=== PATIENT | male | born 1965 | race Caucasian/White ===

== ENCOUNTER 2020-06-19 13:36 | Emergency (ER) | payer OTHER, SELFPAY ==
[2020-06-19 13:39] VITALS: BP 169/89; PULSE 86; RESP 18; TEMP 36.4; O2SAT 100
[2020-06-19 14:37] LABS: Basophils Absolute Auto 0.1 K/mm3 (0.0-0.1); Basophils Percent Auto 0.7 % (0.2-1.2); Eosinophils Absolute Auto 0.1 K/mm3 (0-0.3); Eosinophils Percent Auto 1.3 % (0-4.4); Hematocrit 49.4 % (42.0-52.0); Hemoglobin 16.7 g/dL (14.0-18.0); Immature Granulocyte Absolute 0.09 K/mm3 (0.00-0.031); Lymphocytes Absolute Auto 2.52 K/mm3 (0.9-3.2); Lymphocytes Percent Auto 27.9 % (18.3-44.2); Mean Corpuscular HGB Conc 33.8 g/dl (32-36); Mean Corpuscular Hemoglobin 27.5 pg (26-34); Mean Corpuscular Volume 81.3 fl (80-100); Mean Platelet Volume 9.6 fl (7.4-10.4); Monocytes Absolute Auto 0.7 K/mm3 (0.1-0.6); Monocytes Percent Auto 7.3 % (2.6-8.5); Neutrophils Absolute Auto 5.6 K/mm3 (1.3-6.7); Neutrophils Percent Auto 61.8 % (45.5-73.1); Platelet Count Result 250 k/mm3 (150-375); Red Blood Count 6.08 M/mm3 (4.6-6.20); Red Cell Distribution Width 13.3 % (11.5-14.5)
[2020-06-19 14:39] LABS: Add Urine Microscopic? NO; Appearance Urine Clear (Clear); Bilirubin Urine Negative (Negative); Blood Urine Negative (Negative); Color Urine Colorless (Yellow); Glucose Urine UA Negative (Negative); Ketones Urine Negative (Negative); Leukocyte Esterase Ur Negative LEU/UL (Negative); Nitrate Urine Negative (Negative); Protein Urine Negative (Negative); Specific Grav Ur 1.008 (1.001-1.035); Urobilinogen Urine Negative mg/dL (<2.0)
[2020-06-19 14:48] LABS: Alanine Aminotransferase 37 U/L (4-50); Albumin Level 4.9 g/dL (3.5-5.1); Alkaline Phosphatase 71 U/L (38-126); Anion Gap 14.2 mmol/L (7-16); Aspartate Amino Transferase 30 U/L (17-59); Bilirubin,Total 0.8 mg/dL (0.2-1.3); Blood Urea Nitrogen 16 mg/dL (9-20); Calcium 10.4 mg/dL (8.4-10.2); Carbon Dioxide 29 mmol/L (22-30); Chloride 98 mmol/L (98-107); Estimated Glomerular Filt Rate > 60; Glucose 97 mg/dL (75-110); Lipase 137 U/L (23-300); Potassium 4.2 mmol/L (3.4-5.0); Sodium 137 mmol/L (137-145)
[2020-06-19] MEDS: BELLADONNA ALK/PHENOB ELIX 10 ML, MAG HYDROX/ALUMINUM HYD/SIMETH 30 ML, LIDOCAINE HCL 2... PO (14:54)
--- NOTE | 2020-06-19 15:32 | ED.GENADULT ---
HPI - General Adult General Chief complaint: Abdominal Pain Stated complaint: ABD PAIN Time Seen by Provider: 06/19/20 14:00 History of Present Illness HPI narrative: Patient is a 54-year-old male who presents the ER with abdominal pain. Located in the upper abdomen and is fullness. No diarrhea/constipation/nausea/vomiting. Reports he ran out of his omeprazole several days ago but is having no reflux-like symptoms. He did take some Tums earlier without any change. No chest pain or chest pressure. Symptoms worse last night after eating bratwurst and jalapeno mac & cheese. Related Data Home Medications Medication Instructions Recorded Confirmed omeprazole 40 mg capsule,delayed 40 mg PO .COMPLEX 03/03/20 release Allergies Allergy/AdvReac Type Severity Reaction Status Date / Time Penicillins Allergy Unknown Rash Verified 06/19/20 14:53 Review of Systems Review of Systems: All systems reviewed & are unremarkable except as noted in HPI and below Cardiovascular: Cardiovascular: Denies chest pain Respiratory: Respiratory: Denies dyspnea and Denies wheezing Gastrointestinal: Gastrointestinal: Reports abdominal pain, Denies diarrhea, Denies nausea and Denies vomiting PMFSH Social History Social History Smoking status: Never smoker Alcohol intake: current Gender identity (if verbalized by the patient): Male Exam Narrative: Exam Narrative: GENERAL: Well-appearing, well-nourished, and in no acute distress. HEAD: Normocephalic, atraumatic. CHEST: Clear to auscultation. No respiratory distress. HEART: Regular rate and rhythm. Normal peripheral pulses. ABDOMEN: Soft, nontender, nondistended. EXTREMITIES: Normal range of motion. No edema. NEURO: Alert and oriented x3. PSYCH: Normal mood and affect. Course Course Emergency Course: Informed results. Follow-up with PCP. Restart PPI. Patient does not need prescription according to him. Vital Signs Vital signs: Vital Signs Temperature 97.5 F L 06/19/20 13:39 Pulse Rate 86 06/19/20 13:39 Respiratory Rate 18 06/19/20 13:39 Blood Pressure 169/89 H 06/19/20 13:39 Pulse Oximetry 100 06/19/20 13:39 Temperature 97.5 F L 06/19/20 13:39 Pulse Rate 86 06/19/20 13:39 Respiratory Rate 18 06/19/20 13:39 Blood Pressure 169/89 H 06/19/20 13:39 Pulse Oximetry 100 06/19/20 13:39 Medical Decision Making Vital Signs Vital Signs: Vital Signs Temperature 97.5 F L 06/19/20 13:39 Pulse Rate 86 06/19/20 13:39 Respiratory Rate 18 06/19/20 13:39 Blood Pressure 169/89 H 06/19/20 13:39 Pulse Oximetry 100 06/19/20 13:39 Temperature 97.5 F L 06/19/20 13:39 Pulse Rate 86 06/19/20 13:39 Respiratory Rate 18 06/19/20 13:39 Blood Pressure 169/89 H 06/19/20 13:39 Pulse Oximetry 100 06/19/20 13:39 Lab Data Result diagrams: 06/19/20 14:21 06/19/20 14:21 Labs: Lab Results 06/19/20 06/19/20 06/19/20 Range/Units 14:21 14:21 14:21 WBC 9.0 (4.5-10.0) K/mm3 RBC 6.08 (4.6-6.20) M/mm3 Hgb 16.7 (14.0-18.0) g/dL Hct 49.4 (42.0-52.0) % MCV 81.3 (80-100) fl MCH 27.5 (26-34) pg MCHC 33.8 (32-36) g/dl RDW 13.3 (11.5-14.5) % Plt Count 250 (150-375) k/mm3 MPV 9.6 (7.4-10.4) fl Immature Gran % (Auto) 1.0 H (0-0.5) % Neut % (Auto) 61.8 (45.5-73.1) % Lymph % (Auto) 27.9 (18.3-44.2) % Faulk % (Auto) 7.3 (2.6-8.5) % Eos % (Auto) 1.3 (0-4.4) % Baso % (Auto) 0.7 (0.2-1.2) % Lymph # (Auto) 2.52 (0.9-3.2) K/mm3 Faulk # (Auto) 0.7 H (0.1-0.6) K/mm3 Eos # (Auto) 0.1 (0-0.3) K/mm3 Baso # (Auto) 0.1 (0.0-0.1) K/mm3 Abs Immat Gran (auto) 0.09 H (0.00-0.031) K/mm3 Absolute Neuts (auto) 5.6 (1.3-6.7) K/mm3 Absolute Nucleated RBC 0.0 (0.0-0.012) K/mm3 Nucleated RBC % 0.0 (0.0-0.2) % Sodium 137 (137-145) mmol/L Potassium 4.2
== END 2020-06-19 17:49 | disposition home or self-care (01) ==
PROVIDERS: Emergency Provider Emergency Medicine; PCP Emergency Medicine
DX: K21.9 Gastro-esophageal reflux disease without esophagitis (principal)
CPT/HCPCS: 36415; 80053; 81003; 83690; 85025; 99283; A9270

== ENCOUNTER 2021-12-04 15:45 | Outpatient (CLI) | payer OTHER, SELFPAY ==
--- NOTE | ~2021-12-04 | CT_ITS ---
EXAMINATION: CT abdomen pelvis w con INDICATION: Unspecified abdominal pain TECHNIQUE: Computed tomographic images of the abdomen and pelvis were obtained after the administrati on of 100 cc of Omnipaque 350 intravenous contrast. The dose-length product (DLP) was 789.35 mGy-cm. Automated exposure control and iterative reconstruction technique were employed. COMPARISON: 08/05/2005 FINDINGS: The lung bases are clear. The heart size is normal. The liver, spleen, pancreas, gallbladde r, and adrenal glands are normal. The right kidney is unremarkable. There is a 10 mm cyst of the left kidney. There is calcified atherosclerosis of the aorta and many of the other arteries. There is no free intraperitoneal gas or evidence of bowel obstruction. The appendix is normal. There are bilatera lly hernias containing fat, left greater than right. There are bilateral L5 pars defects with grade 1 anterolisthesis of L5 on S1 and moderate lumbar spondylosis. IMPRESSION: 1. No CT correlate for the patient's symptoms. 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
== END 2021-12-04 15:46 | disposition home or self-care (01) ==
LOC: ANHIMG 15:49
PROVIDERS: PCP Emergency Medicine; Visit Provider Emergency Medicine
DX: R10.9 Unspecified abdominal pain (principal)
CPT/HCPCS: 74177; Q9967

== ENCOUNTER 2022-04-19 00:42 | Day surgery (SDC) | payer OTHER, SELFPAY ==
[2022-03-31 14:21] VITALS: BMI 33.9
[2022-04-19 06:53] VITALS: BP 158/100; PULSE 88; RESP 18; TEMP 36.5; O2SAT 99
[2022-04-19] MEDS: LACTATED RINGERS 1,000 ML 150 ML IV CONT (07:03)
[2022-04-19 07:13] VITALS: BMI 32.1
--- NOTE | 2022-04-19 07:20 | WPDANESEPPF ---
Anes - Initial Pre Proc Eval Procedure: Operation Date: 04/19/22 08:00 Proposed Procedures p Screening Colonoscopy - Catracho Morton MD Date/Time: 04/19/22 07:20 Surgeon: Catracho Morton MD Pre Op Diagnosis: hx of colon polyps, neoplasm screening Patient Data Age: 56 Gender: M Height: 1.68 m Weight: 90.4 kg Last Vital Signs Temp 36.5 C 04/19/22 06:53 Pulse 88 04/19/22 06:53 Resp 18 04/19/22 06:53 BP 158/100 H 04/19/22 06:53 Pulse Ox 99 04/19/22 06:53 O2 Del Method Room Air 04/19/22 06:53 Allergies Allergy/AdvReac Type Severity Reaction Status Date / Time Penicillins Allergy Mild Rash Verified 04/19/22 07:12 Home Medications Medication Instructions Recorded Confirmed Type omeprazole 40 mg capsule,delayed 40 mg PO DAILY 03/03/20 03/31/22 History release tamsulosin 0.4 mg capsule (Flomax) 0.4 mg PO DAILY #90 caps 01/15/22 03/31/22 Rx metoprolol succinate 50 mg 50 mg PO BID #180 tabs 02/10/22 03/31/22 Rx tablet,extended release 24 hr (Toprol XL) lamotrigine 100 mg tablet 100 mg PO DAILY 03/31/22 03/31/22 History lisinopril 10 mg tablet 10 mg PO DAILY 03/31/22 03/31/22 History simvastatin 40 mg tablet 40 mg PO DAILY 03/31/22 03/31/22 History cholecalciferol (vitamin D3) 1,250 1,250 mcg PO WEEKLY #12 caps 04/02/22 04/19/22 Rx mcg (50,000 unit) capsule Patient hx anesthesia problems: none Family hx anesthesia problems: none Results Review: All pre-operative results and documents have been reviewed as part of the pre-operative evaluation. [facility] Past Medical History Medical History Actinic keratoses Acute nonintractable headache Allergic contact dermatitis due to plants, except food Apneic episode Bilateral carotid bruits Body mass index [BMI] 33.0-33.9, adult (02/13/18) Diastasis recti Dietary counseling and surveillance (03/28/17) Dizziness Elevated prostate specific antigen (PSA) Fatigue GERD (gastroesophageal reflux disease) HTN (hypertension) Hypogonadism in male Low serum testosterone level LTB (laryngotracheobronchitis) Mixed hyperlipidemia Overweight (10/16/15) Pure hypercholesterolemia Snoring Stress URI (upper respiratory infection) Family History Family History Father Family history of alcoholism Family history of liver disease Family history of primary malignant neoplasm of liver Family history of pancreatic cancer, Onset Age: 56 Mother Family history of Alzheimer's disease Social History Social History Smoking status: Never smoker Alcohol intake: current Alcohol use details: socially - beer, wine, bourbon 1-2 per day Substance use: never Substance use type: does not use Living arrangements: with family Gender identity (if verbalized by the patient): Male Spiritual care concerns: No Anes - Eval Final PreProcedure Day of Procedure 04/19/22 07:20 Patient weight: obese Heart: regular rate and rhythm Lungs: clear to auscultation and normal air movement Airway: Mallampati scale class II Neurological: alert and oriented Last oral intake: >/= 8 hours ASA classification: III Emergent: no Anesthetic plan: proceed Anesthesia type and monitoring: general GIVS Results Review: All pre-operative results and documents have been reviewed as part of the pre-operative evaluation. Informed Consent: The patient's anesthetic plan and its attendant risks and benefits were discussed with the patient/family/POA. Questions were solicited and answers provided to the satisfaction of the patient/family/POA.
--- NOTE | 2022-04-19 07:23 | PM.IMHP ---
H&P: HPI History of Present Illness Date/Time: 04/19/22 07:23 Chief Complaint: Neoplasia screening. Personal history of colon polyps. Narrative: This is a 56-year-old white male patient who presents for screening colonoscopy. Patient has a prior history of colon polyps. Most recently 5 years ago. Patient reports that his current weight appetite and bowel movements are normal. He denies abdominal pain. He has had no bleeding. Family history is noncontributory. He presents today for neoplasia screening. Review of Systems Review of Systems: Review of systems noncontributory. [facility] Past Medical History Medical History Actinic keratoses Acute nonintractable headache Allergic contact dermatitis due to plants, except food Apneic episode Bilateral carotid bruits Body mass index [BMI] 33.0-33.9, adult (02/13/18) Diastasis recti Dietary counseling and surveillance (03/28/17) Dizziness Elevated prostate specific antigen (PSA) Fatigue GERD (gastroesophageal reflux disease) HTN (hypertension) Hypogonadism in male Low serum testosterone level LTB (laryngotracheobronchitis) Mixed hyperlipidemia Overweight (10/16/15) Pure hypercholesterolemia Snoring Stress URI (upper respiratory infection) Family History Family History Father Family history of alcoholism Family history of liver disease Family history of primary malignant neoplasm of liver Family history of pancreatic cancer, Onset Age: 56 Mother Family history of Alzheimer's disease Social History Social History Smoking status: Never smoker Alcohol intake: current Alcohol use details: socially - beer, wine, bourbon 1-2 per day Substance use: never Substance use type: does not use Living arrangements: with family Gender identity (if verbalized by the patient): Male Spiritual care concerns: No Meds Home Medications and Allergies Home Medications Medication Instructions Recorded Confirmed Type omeprazole 40 mg capsule,delayed 40 mg PO DAILY 03/03/20 03/31/22 History release tamsulosin 0.4 mg capsule (Flomax) 0.4 mg PO DAILY #90 caps 01/15/22 03/31/22 Rx metoprolol succinate 50 mg 50 mg PO BID #180 tabs 02/10/22 03/31/22 Rx tablet,extended release 24 hr (Toprol XL) lamotrigine 100 mg tablet 100 mg PO DAILY 03/31/22 03/31/22 History lisinopril 10 mg tablet 10 mg PO DAILY 03/31/22 03/31/22 History simvastatin 40 mg tablet 40 mg PO DAILY 03/31/22 03/31/22 History cholecalciferol (vitamin D3) 1,250 1,250 mcg PO WEEKLY #12 caps 04/02/22 04/19/22 Rx mcg (50,000 unit) capsule Allergies Allergy/AdvReac Type Severity Reaction Status Date / Time Penicillins Allergy Mild Rash Verified 04/19/22 07:12 Vital Signs Vital Signs - 24 hr 04/19/22 06:53 Temperature 97.7 F Pulse Rate 88 Respiratory Rate 18 Blood Pressure 158/100 H Pulse Oximetry 99 Oxygen Delivery Room Air Exam Narrative: Physical exam reveals patient be alert. Vital signs stable. HEENT exam is unremarkable. Patient is anicteric. Lungs are clear to auscultation and percussion. Heart is without murmur or extra sounds. Abdominal exam bowel sounds present soft nontender with no organomegaly. Digital external rectal exam is normal. Assessment and Plan Assessment and plan (1) History of colon polyps: Code(s): Z86.010 - Personal history of colonic polyps Status: Acute Assessment and Plan: Patient presents today for screening colonoscopy. He has a prior history of colon polyps. Further recommendations will be given after endoscopy.
[2022-04-19] MEDS: SIMETHICONE ORAL SUSPENSION 20 MG/0.3 ML 30 ML BOTTLE 0.6 ML IRRIGATION (08:05)
[2022-04-19 08:14] VITALS: BP 132/93; PULSE 80; RESP 18; O2SAT 93
[2022-04-19 08:24] VITALS: BP 136/91; PULSE 69; RESP 18; O2SAT 94
[2022-04-19 08:29] VITALS: BP 142/86; PULSE 67; RESP 18; O2SAT 98
== END 2022-04-19 08:46 | disposition home or self-care (01) ==
PROVIDERS: PCP Emergency Medicine; Visit Provider Internal Medicine Gastroenterology
PROC: 0DJD8ZZ Inspection of Lower Intestinal Tract, Via Natural or Artificial Opening Endoscopic (ICD-10-PCS; CPT 45378; principal; 2022-04-19 08:00)
DX: Z12.11 Encounter for screening for malignant neoplasm of colon (principal); K64.8 Other hemorrhoids; K57.30 Diverticulosis of large intestine without perforation or abscess without bleeding; D12.4 Benign neoplasm of descending colon; E78.2 Mixed hyperlipidemia; K21.9 Gastro-esophageal reflux disease without esophagitis; I10 Essential (primary) hypertension; E78.00 Pure hypercholesterolemia, unspecified; E66.9 Obesity, unspecified; Z68.32 Body mass index [BMI] 32.0-32.9, adult
CPT/HCPCS: 45385; 88305; J2704; J7120

== ENCOUNTER 2022-06-13 15:41 | Emergency (ER) | payer OTHER, SELFPAY | END 2022-06-13 16:08 | disposition left against medical advice (07) | PROVIDERS: PCP Emergency Medicine | DX: Z53.21 Procedure and treatment not carried out due to patient leaving prior to being seen by health care provider (principal) | CPT/HCPCS: 99199 ==

== ENCOUNTER 2022-06-13 21:37 | Emergency (ER) | payer OTHER, SELFPAY ==
[2022-06-13] VITALS (8 sets, daily range): BP systolic 129–178; BP diastolic 77–137; PULSE 89–126; RESP 15–19; TEMP 36.5; O2SAT 96–100
--- NOTE | ~2022-06-13 | CT_ITS ---
EXAMINATION: CT abdomen pelvis wo con DATE: 06/13/2022 23:21 INDICATION: Abdominal pain. Vomiting. TECHNIQUE: Computed tomography (CT) of the abdomen and pelvis was performed without intravenous contr ast. Automated exposure control and iterative reconstruction technique were employed. The dose-length product was 763.04 mGy-cm. COMPARISON: CT abdomen and pelvis 12/04/2021 FINDINGS: The visualized portions of the lung bases demonstrate mild atelectasis. There is mild scarr ing in paraspinal right lower lobe. No pleural effusion. The heart size is normal. There are coronary artery calcifications. No pericardial effusion. There is diffuse hepatic steatosis. The gallbladder, spleen, pancreas, adrenal glands, and kidneys are normal. There is no urolithiasis. The prostate is mildly enlarged. There is a left inguinal hernia containing fat. There are no dilated loops of bowel. The appendix is normal. There are no pathologically enlarged lymph nodes. There is no free intraperi toneal fluid. There are chronic bilateral L5 pars defects. There is 6 mm anterolisthesis of L5 on S1. There is moderate lumbar spondylosis and mild thoracic spondylosis. IMPRESSION: 1. Diffuse hepatic steatosis. 2. Left inguinal hernia containing fat. Reviewed, dictated and finalized at location A.
[2022-06-13 22:20] LABS: Basophils Percent Auto 0.3 % (0.2-1.2); Eosinophils Percent Auto 0.1 % (0-4.4); Hematocrit 49.3 % (42.0-52.0); Hemoglobin 16.5 g/dL (14.0-18.0); Immature Granulocyte Absolute 0.04 K/mm3 (0.00-0.031); Immature Granulocyte Percent A 0.5 % (0-0.5); Lymphocytes Absolute Auto 0.51 K/mm3 (0.9-3.2); Lymphocytes Percent Auto 6.8 % (18.3-44.2); Mean Corpuscular HGB Conc 33.5 g/dl (32-36); Mean Corpuscular Hemoglobin 27.6 pg (26-34); Mean Corpuscular Volume 82.6 fl (80-100); Mean Platelet Volume 9.1 fl (7.4-10.4); Monocytes Absolute Auto 0.4 K/mm3 (0.1-0.6); Monocytes Percent Auto 4.8 % (2.6-8.5); Neutrophils Absolute Auto 6.5 K/mm3 (1.3-6.7); Neutrophils Percent Auto 87.5 % (45.5-73.1); Platelet Count Result 209 k/mm3 (150-375); Red Blood Count 5.97 M/mm3 (4.6-6.20); Red Cell Distribution Width 14.6 % (11.5-14.5); White Blood Count 7.5 K/mm3 (4.5-10.0)
[2022-06-13 22:31] LABS: Appearance Urine Clear (Clear); Bilirubin Urine 1+ (Negative); Blood Urine Trace-lysed (Negative); Color Urine Yellow (Yellow); Glucose Urine UA Negative (Negative); Ketones Urine 4+ mg/dL (Negative); Leukocyte Esterase Ur Negative LEU/UL (Negative); Nitrate Urine Negative (Negative); Protein Urine 1+ mg/dL (Negative); Specific Grav Ur >= 1.030 (1.001-1.035); Urobilinogen Urine 0.2 mg/dL (<2.0); pH Urine 5.5 (5.0-9.0)
[2022-06-13 22:32] LABS: Alanine Aminotransferase 65 U/L (6-50); Albumin Level 4.8 g/dL (3.5-5.1); Alkaline Phosphatase 66 U/L (38-126); Anion Gap 14 mmol/L (8-16); Aspartate Amino Transferase 38 U/L (17-59); Bilirubin,Total 0.8 mg/dL (0.2-1.3); Blood Urea Nitrogen 14 mg/dL (9-20); Calcium 9.4 mg/dL (8.4-10.2); Carbon Dioxide 22 mmol/L (22-30); Chloride 102 mmol/L (98-107); Estimated CRCL calculation 121 ml/min; Estimated Glomerular Filt Rate > 60; Glucose 108 mg/dL (65-110); Lipase 102 U/L (23-300); Potassium 3.7 mmol/L (3.4-5.0); Sodium 138 mmol/L (137-145)
[2022-06-13 22:34] LABS: Bacteria Urine Trace /hpf; Calcium Oxalate Crystals Urine Present /hpf; Mucus Urine Few /lpf; RBC Urine 0-2 /hpf (0-2); WBC Urine 0-3 /hpf
[2022-06-13 22:35] LABS: Add Urine Microscopic? YES
[2022-06-13] MEDS: PROMETHAZINE HCL 25 MG/ML AMPUL 12.5 MG IV PUSH (22:36)
[2022-06-13] MEDS: LACTATED RINGERS 1,000 ML 999 ML IV CONT (22:36)
--- NOTE | 2022-06-13 22:56 | ED.NAVMDI ---
HPI - Nausea/Vomiting/Diarrhea General Chief complaint: Nausea/Vomiting/Diarrhea Stated complaint: n/v Time Seen by Provider: 06/13/22 22:07 History of Present Illness HPI Narrative: Patient is a 56-year-old male complaining of nausea, vomiting, diarrhea and mild abdominal cramping that started last night after eating chicken wings. Patient describes his vomitus as nonbilious nonbloody. Patient describes his diarrhea as loose watery, nonbloody. Patient denies any fever or chills. Patient denies any sick contacts. Related Data Home Medications Medication Instructions Recorded Confirmed omeprazole 40 mg capsule,delayed 40 mg PO DAILY 03/03/20 03/31/22 release lamotrigine 100 mg tablet 100 mg PO DAILY 03/31/22 03/31/22 lisinopril 10 mg tablet 10 mg PO DAILY 03/31/22 03/31/22 simvastatin 40 mg tablet 40 mg PO DAILY 03/31/22 03/31/22 Allergies Allergy/AdvReac Type Severity Reaction Status Date / Time Penicillins Allergy Mild Rash Verified 06/13/22 22:36 Review of Systems Review of Systems: All systems reviewed & are unremarkable except as noted in HPI and below Constitutional: Constitutional: Denies body ache(s), Denies chills, Denies excessive sweating, Denies fatigue, Denies fever(s), Denies headache(s), Denies lethargy, Denies malaise, Denies weakness and Denies weight loss Eyes: Eyes: Denies blurry vision, Denies change in vision and Denies loss of vision ENT: Denies dizziness, Denies ear discharge, Denies headache(s), Denies lip swelling, Denies epistaxis, Denies nasal congestion, Denies neck pain, Denies throat swelling and Denies tongue swelling Cardiovascular: Cardiovascular: Denies chest pain, Denies chest pain at rest, Denies chest pain with activity, Denies diaphoresis, Denies rapid heart rate, Denies edema, Denies irregular heart rhythm, Denies lightheadedness, Denies palpitations, Denies dyspnea and Denies dyspnea on exertion Respiratory: Respiratory: Denies chest congestion, Denies cough, Denies hemoptysis, Denies dyspnea and Denies dyspnea on exertion Gastrointestinal: Gastrointestinal: Denies abdominal pain, Denies melena, Denies hematochezia and Denies hematemesis Musculoskeletal: Musculoskeletal: Denies abnormal gait, Denies deformity, Denies joint swelling, Denies limited range of motion, Denies neck pain and Denies numbness Neurologic: Denies Abnormal speech present, Denies abnormal gait, Denies confusion, Denies dizziness, Denies headache(s), Denies focal weakness, Denies loss of vision, Denies numbness, Denies Other visual disturbances, Denies Sensory deficit (Neuro) and Denies weakness Psychiatric: Psychiatric: Denies confusion, Denies depression, Denies auditory hallucinations, Denies homicidal ideation and Denies suicidal ideation Endocrine: Endocrine: Denies cold intolerance, Denies excessive sweating, Denies fatigue, Denies heat intolerance and Denies palpitations Hematologic/Lymphatic: Hematologic/Lymphatic: Denies easy bleeding and Denies easy bruising Allergic/Immunologic: Allergic/Immunologic: Denies lip swelling, Denies throat swelling and Denies tongue swelling PMFSH Past Medical History Medical History Actinic keratoses Acute nonintractable headache Allergic contact dermatitis due to plants, except food Apneic episode Bilateral carotid bruits Body mass index [BMI] 33.0-33.9, adult (02/13/18) Diastasis recti Dietary counseling and surveillance (03/28/17) Dizziness Elevated prostate specific antigen (PSA) Fatigue GERD (gastroesophageal reflux disease) HTN (hypertension) Hypogonadism in male Low serum testosterone level LTB (laryngotracheobronchitis) Mixed hyperlipidemia Overweight (10/16/15) Pure hypercholesterolemia Snoring Stress URI (upper respiratory infection) Family History Family History Father Family history of alcoholism Family history of liver d
[2022-06-13] MEDS: KETOROLAC 30 MG/ML VIAL (*BKC) IV PUSH (23:59)
[2022-06-13] MEDS: ONDANSETRON INJ 4 MG/2 ML VIAL IV PUSH (23:59)
== END 2022-06-14 00:06 | disposition home or self-care (01) ==
PROVIDERS: Emergency Provider Emergency Medicine; PCP Emergency Medicine
DX: A05.9 Bacterial foodborne intoxication, unspecified (principal); I10 Essential (primary) hypertension; E78.2 Mixed hyperlipidemia; K21.9 Gastro-esophageal reflux disease without esophagitis
CPT/HCPCS: 36415; 74176; 80053; 81001; 83690; 85025; 96361; 96374; 96375; 99284; J1885; J2405; J2550; J7120

== ENCOUNTER 2022-12-14 10:14 | Emergency (ER) | payer OTHER, SELFPAY ==
--- NOTE | ~2022-12-14 | XR_ITS ---
EXAMINATION: XR chest 2V DATE: 12/14/2022 14:22 INDICATION: Chest pain. Hypertension. TECHNIQUE: PA and lateral views of the chest were obtained. COMPARISON: None FINDINGS: The lungs are clear with no focal airspace opacities, pulmonary edema, pleural effusion or pneumothor ax. The cardiomediastinal silhouette is normal. Mild thoracic spondylosis with mild anterior wedging of a few lower thoracic vertebral bodies. IMPRESSION: 1. No acute cardiopulmonary disease. Reviewed, dictated and finalized at location A. 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
[2022-12-14 10:16] VITALS: BP 169/103; PULSE 87; RESP 16; TEMP 36.6; O2SAT 100
--- NOTE | 2022-12-14 10:20 | ECG_ITS ---
Measurements Intervals Ney Rate: 83 P: 20 SD: 140 QRS: 10 QRSD: 88 T: 55 QT: 357 QTc: 420 Interpretive Statements SINUS RHYTHM NORMAL ECG NO PREVIOUS ECG AVAILABLE FOR COMPARISON Electronically Signed On 12-14-2022 10:38:59 NETWORKING TECHNOLOGY INSTRUCTOR by Desmond Winchester D.O.
[2022-12-14 15:30] LABS: Basophils Absolute Auto 0.1 K/mm3 (0.0-0.1); Basophils Percent Auto 0.6 % (0.2-1.2); Eosinophils Absolute Auto 0.1 K/mm3 (0-0.3); Eosinophils Percent Auto 0.8 % (0-4.4); Hematocrit 51.2 % (42.0-52.0); Hemoglobin 17.1 g/dL (14.0-18.0); Immature Granulocyte Absolute 0.09 K/mm3 (0.00-0.031); Immature Granulocyte Percent A 1.1 % (0-0.5); Lymphocytes Absolute Auto 2.19 K/mm3 (0.9-3.2); Lymphocytes Percent Auto 25.6 % (18.3-44.2); Mean Corpuscular HGB Conc 33.4 g/dl (32-36); Mean Corpuscular Hemoglobin 27.7 pg (26-34); Mean Platelet Volume 9.5 fl (7.4-10.4); Monocytes Absolute Auto 0.6 K/mm3 (0.1-0.6); Monocytes Percent Auto 6.6 % (2.6-8.5); Neutrophils Absolute Auto 5.6 K/mm3 (1.3-6.7); Neutrophils Percent Auto 65.3 % (45.5-73.1); Platelet Count Result 248 k/mm3 (150-375); Red Blood Count 6.17 M/mm3 (4.6-6.20); Red Cell Distribution Width 14.1 % (11.5-14.5); White Blood Count 8.5 K/mm3 (4.5-10.0)
[2022-12-14 15:50] LABS: Troponin I < 0.012 ng/mL (0.000-0.034)
[2022-12-14 15:56] LABS: Alanine Aminotransferase 49 U/L (6-50); Albumin Level 5.2 g/dL (3.5-5.1); Alkaline Phosphatase 83 U/L (38-126); Anion Gap 11 mmol/L (8-16); Aspartate Amino Transferase 44 U/L (17-59); Bilirubin,Total 0.6 mg/dL (0.2-1.3); Blood Urea Nitrogen 18 mg/dL (9-20); Calcium 9.4 mg/dL (8.4-10.2); Carbon Dioxide 25 mmol/L (22-30); Chloride 99 mmol/L (98-107); Estimated CRCL calculation 95 ml/min; Estimated Glomerular Filt Rate > 60; Glucose 103 mg/dL (65-110); Potassium 4.1 mmol/L (3.4-5.0); Sodium 135 mmol/L (137-145)
--- NOTE | 2022-12-14 16:38 | ED.GENADULT ---
HPI - General Adult General Chief complaint: Recheck/Abnormal Lab/Rx Stated complaint: htn Time Seen by Provider: 12/14/22 13:33 History of Present Illness HPI narrative: Patient is a 57-year-old male who presents ER for medical evaluation. 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 Reports he has been intermittently having vague's feelings of chest discomfort and shortness of breath. No otherwise associated with exertion. No history of heart disease. No fevers or chills or sweats. Patient reports he has not so people his age who started having heart issues and making him a bit nervous. He has not had a stress test. Related Data Home Medications Medication Instructions Recorded Confirmed omeprazole 40 mg capsule,delayed 40 mg PO DAILY 03/03/20 03/31/22 release Allergies Allergy/AdvReac Type Severity Reaction Status Date / Time Penicillins Allergy Mild Rash Verified 08/17/22 16:03 Review of Systems Review of Systems: All systems reviewed & are unremarkable except as noted in HPI and below Constitutional: Constitutional: Denies chills, Reports fatigue and Denies fever(s) ENT: Denies nasal congestion and Denies sore throat Cardiovascular: Cardiovascular: Reports chest pain, Denies rapid heart rate and Denies radiating jaw, neck or arm pain Respiratory: Respiratory: Denies cough, Reports dyspnea and Denies wheezing Gastrointestinal: Gastrointestinal: Denies diarrhea, Denies nausea and Denies vomiting PMFSH Past Medical History Medical History Actinic keratoses Acute nonintractable headache Allergic contact dermatitis due to plants, except food Apneic episode Bilateral carotid bruits Body mass index [BMI] 33.0-33.9, adult (02/13/18) Diastasis recti Dietary counseling and surveillance (03/28/17) Dizziness Elevated prostate specific antigen (PSA) Fatigue GERD (gastroesophageal reflux disease) HTN (hypertension) Hypogonadism in male Low serum testosterone level LTB (laryngotracheobronchitis) Mixed hyperlipidemia Overweight (10/16/15) Pure hypercholesterolemia Snoring Stress URI (upper respiratory infection) Family History Family History Father Family history of alcoholism Family history of liver disease Family history of primary malignant neoplasm of liver Family history of pancreatic cancer, Onset Age: 56 Mother Family history of Alzheimer's disease Social History Social History Smoking status: Never smoker Alcohol intake: current Alcohol use details: socially - beer, wine, bourbon 1-2 per day Substance use: never Substance use type: does not use Living arrangements: with family Gender identity (if verbalized by the patient): Male Spiritual care concerns: No Exam Narrative: GENERAL: Well-appearing, well-nourished, and in no acute distress. HEAD: Normocephalic, atraumatic. EYES: PERRL and EOMI. ENT: Mucous membranes moist. CHEST: Clear to auscultation. No respiratory distress. HEART: Regular rate and rhythm. Normal peripheral pulses. EXTREMITIES: Normal range of motion. No edema. NEURO: Alert and oriented x3. PSYCH: Normal mood and affect. Course Course Emergency Course: Patient resting comfortably. Blood pressures in the 160s over 100s. Could certainly have better control. Recommend follow-up with PCP for medication modification. Vital Signs Vital signs: Vital Signs Temperature 97.9 F 12/14/22 10:16 Pulse Rate 87 12/14/22 10:16 Respiratory Rate 16 12/14/22 10:16 Blood Pressure 169/103 H 12/14/22 10:16 Pulse Oximetry 100 12/14/22 10:16 Oxygen Delivery Room Air 12/14/22 10:16 Temperature 97.9 F 12/14/22 10:16 Pulse Ra
== END 2022-12-14 16:50 | disposition home or self-care (01) ==
PROVIDERS: Emergency Provider Emergency Medicine; PCP Emergency Medicine
DX: I10 Essential (primary) hypertension (principal); K21.9 Gastro-esophageal reflux disease without esophagitis; E78.2 Mixed hyperlipidemia; E66.3 Overweight; Z68.32 Body mass index [BMI] 32.0-32.9, adult
CPT/HCPCS: 36415; 71046; 80053; 84484; 85025; 93005; 99284

== ENCOUNTER 2024-07-30 16:16 | Outpatient (CLI) | payer OTHER, SELFPAY ==
--- NOTE | ~2024-07-30 | XR_ITS ---
EXAMINATION: XR lumbar spine 2-3V, XR pelvis 1-2V DATE: 07/30/2024 16:31 INDICATION: Low back pain and bilateral sacroiliac joint pain TECHNIQUE: 1. Anteroposterior and lateral views of the lumbar spine, and cone-down lateral view of the lumbosacr al junction were obtained. 2. Anteroposterior view of the pelvis is obtained. COMPARISON: CT abdomen pelvis dated 06/13/2022 FINDINGS: Lumbar spine: 12 degrees lumbar dextrocurvature. L5 spondylolysis with lucent pars intra-articularis defects confir med bilaterally on prior CT. Unchanged 6 mm anterolisthesis L5 on S1. Vertebral body heights are norm al. Moderate disc height loss at L4-L5, L5-S1 and at the left side of L3-L4. Mild disc height loss at L1-L2 and L2-L3. Severe facet osteoarthritis on the right at L3-L4 with mild to moderate facet osteo arthritis at the remainder of the lumbar spine. Pelvis: Bone alignment is normal. No fracture or suspected osteonecrosis. Mild bilateral hip and sacroiliac osteoarthritis. No subarticular erosions to suggest an inflammatory sacroiliitis. IMPRESSION: 1. Mild lumbar dextrocurvature with moderate spondylosis including L5 spondylolysis with bilateral pa rs intra-articular is defects and 6 pulmonary anterolisthesis on S1. 2. Mild bilateral hip and sacroiliac osteoarthritis. Reviewed, dictated and finalized at location B. IMPRESSION: 1. Mild lumbar dextrocurvature with moderate spondylosis including L5 spondylol ysis with bilateral pars intra-articular is defects and 6 pulmonary anterolisth esis on S1. 2. Mild bilateral hip and sacroiliac osteoarthritis.
== END 2024-07-30 16:17 | disposition home or self-care (01) ==
PROVIDERS: PCP Chiropractor; Visit Provider Chiropractor
DX: M43.8X6 Other specified deforming dorsopathies, lumbar region (principal); M43.06 Spondylolysis, lumbar region; M16.0 Bilateral primary osteoarthritis of hip; M46.1 Sacroiliitis, not elsewhere classified
CPT/HCPCS: 72100; 72170

== ENCOUNTER 2024-08-07 12:08 | Outpatient (CLI) | payer OTHER, SELFPAY ==
--- NOTE | ~2024-08-07 | MR_ITS ---
MRI of the lumbar spine Clinical History: Back pain, sciatica Technique: Axial T2-weighted images, and sagittal T1-weighted, T2-weighted, and T2 fat-sat images wer e acquired. Findings: There are bilateral L5 pars interarticularis defects, with 7 mm anterolisthesis of L5 over S1. No acute fracture seen. No suspicious bone marrow signal abnormality seen. At L1-L2, there is no disc bulge or herniation. There is moderate facet arthropathy. No spinal canal stenosis or definite neural foraminal narrowing. At L2-L3, there is mild disc bulge and moderate facet arthropathy. No estiven central canal stenosis. T here is moderate to advanced bilateral neural foraminal narrowing, left worse than right. At L3-L4, there is diffuse disc bulge with superimposed central disc extrusion, extending superiorly. There is moderate to severe spinal canal stenosis/thecal sac compression at the L3-L4 level. There i s advanced facet arthropathy. There is moderate to advanced bilateral neural foraminal narrowing. At L4-L5, there is diffuse disc bulge with small central disc extrusion extending superiorly. There i s moderate effacement of the right side of the thecal sac anteriorly. There is advanced facet arthrop athy. There is advanced right neural foraminal narrowing, and moderate to advanced left neural forami nal narrowing. At L5-S1, there is diffuse disc bulge/protrusion posteriorly with severe facet arthropathy. No estiven central canal stenosis. There is severe bilateral neural foraminal compromise. Paravertebral soft tissues are unremarkable. 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 Additional moderate to advanced degenerative spondylosis, as above, with multilevel advanced bilatera l neural foraminal narrowing. There is moderate to severe spinal canal stenosis/thecal sac compressio n L3-L4, partially related to disc extrusion. Bilateral L5 pars interarticularis defects, with 7 mm anterolisthesis of L5 over S1. Reviewed, dictated and finalized at location M. 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 Additional moderate to advanced degenerative spondylosis, as above, with multil evel advanced bilateral neural foraminal narrowing. There is moderate to severe spinal canal stenosis/thecal sac compression L3-L4, partially related to disc extrusion. Bilateral L5 pars interarticularis defects, with 7 mm anterolisthesis of L5 ove r S1.
== END 2024-08-07 12:09 | disposition home or self-care (01) ==
LOC: GOSHIMG 12:09
PROVIDERS: PCP Emergency Medicine; Visit Provider Emergency Medicine
DX: M54.30 Sciatica, unspecified side (principal); M50.20 Other cervical disc displacement, unspecified cervical region; M47.892 Other spondylosis, cervical region
CPT/HCPCS: 72148

== ENCOUNTER 2025-01-10 13:39 | Emergency (ER) | payer OTHER, SELFPAY ==
[2025-01-10 14:19] VITALS: BP 150/85; PULSE 82; RESP 17; TEMP 36.3; O2SAT 100
--- NOTE | 2025-01-10 15:58 | ED.GENADULT ---
HPI - General Adult General Chief complaint: Environmental Exposure Stated complaint: cough SOB, non-productive Time Seen by Provider: 01/10/25 15:58 History of Present Illness HPI narrative: This is a 59-year-old male presenting for cough. He was inspecting a rental apartment that had a device that was admitting smoking to the apartment. While he was in there he started to feel nauseous and when he left he developed persistent coughing. He was then brought to the hospital for evaluation. All of his symptoms have since resolved. He does not have any fevers chills cough chest pain difficulty breathing abdominal pain nausea vomiting diarrhea. Related Data Home Medications ?Medication ?Instructions ?Recorded ?Confirmed ?Last Taken ?Type omeprazole 40 mg capsule,delayed 40 mg PO DAILY 03/03/20 07/31/24 Unknown History release Allergies Allergy/AdvReac Type Severity Reaction Status Date / Time Penicillins Allergy Mild Rash Verified 01/10/25 14:19 PMFSH Past Medical History Medical History Abdominal pain Actinic keratoses Acute nonintractable headache Allergic contact dermatitis due to plants, except food Apneic episode Bilateral carotid bruits Body mass index [BMI] 33.0-33.9, adult (02/13/18) Diarrhea Diastasis recti Dietary counseling and surveillance (03/28/17) Dizziness Elevated prostate specific antigen (PSA) Erectile dysfunction Fatigue GERD (gastroesophageal reflux disease) History of colon polyps HTN (hypertension) Hypogonadism in male Low serum testosterone level LTB (laryngotracheobronchitis) Mixed hyperlipidemia Overweight (10/16/15) Pure hypercholesterolemia Rectal pain Scalp lesion Skin lesion of back Snoring Stress URI (upper respiratory infection) Family History Family History Father Family history of alcoholism Family history of liver disease Family history of primary malignant neoplasm of liver Family history of pancreatic cancer, Onset Age: 56 Mother Family history of Alzheimer's disease Social History Social History Smoking status: Never smoker Alcohol intake: current Alcohol use details: socially - beer, wine, bourbon 1-2 per day Substance use: never Substance use type: does not use Do You Feel Safe in your Home?: Yes Lack of Transportation: No Lack of Food: Never True Current Housing: I Have Housing Concerned About Future Housing: No Difficulty Paying Gas/Electric Bills: No Difficulty Paying for Meds: No Currently Unemployed: No Education: High School Diploma/GED Difficulty w/ Childcare or Family Care: No Living arrangements: with family Gender identity (if verbalized by the patient): Male Spiritual care concerns: No Exam Narrative: APPEARANCE: No apparent distress, soft nontender no guarding rebound Head: atraumatic. EYES: EOMI, NOSE: Atraumatic NECK: Trachea midline RESPIRATORY: No increased rate of breathing clear to auscultation CARDIOVASCULAR: RRR, ABDOMINAL: Non-distended MUSCULOSKELETAl: No obvious deformities NEURO: Alert. Moving 4/4 extremities SKIN:: Warm, dry. Normal color PSYCHIATRIC: Normal affect Course Vital Signs Vital signs: Vital Signs Temperature 97.3 F L 01/10/25 14:19 Pulse Rate 82 01/10/25 14:19 Respiratory Rate 17 01/10/25 14:19 Blood Pressure 150/85 H 01/10/25 14:19 Pulse Oximetry 100 01/10/25 14:19 Oxygen Delivery Room Air 01/10/25 14:19 Temperature 97.3 F L 01/10/25 14:19 Pulse Rate 82 01/10/25 14:19 Respiratory Rate 17 01/10/25 14:19 Blood Pressure 150/85 H 01/10/25 14:19 Pulse Oximetry 100 01/10/25 14:19 Oxygen Delivery Room Air 01/10/25 14:19 Medical Decision Making MDM Narrative Medical decision making narrative: -Course: 59-year-old male presenting coughing episode supposed to some sort of air. Find advice in the rental apartment. The symptoms he describes are consistent with bronchospasm due to chemical irriation. At this time he is now resting comfortably the symptoms have resolved. His lung exam is normal. Chest x-ray is clear. No intervention at this time. Patient will be discharged with primary care follow-up -DDX includes but is not limited to:, bronchospasm, pneumonitis Vital Signs Vital Signs: Vital Signs Temperature 97.3 F L 01/10/25 14:19 Pulse Rate 82 01/10/25 14:19 Respiratory Rate 17 01/10/25 14:19 Blood Pressure 150/85 H 01/10/25 14:19 Pulse Oximetry 100 01/10/25 14:19 Oxygen Delivery Room Air 01/10/25 14:19 Temperature 97.3 F L 01/10/25 14:19 Pulse Rate 82 01/10/25 14:19 Respiratory Rate 17 01/10/25 14:19 Blood Pressure 150/85 H 01/10/25 14:19 Pulse Oximetry 100 01/10/25 14:19 Oxygen Delivery Room Air 01/10/25 14:19 Discharge Plan Discharge Clinical Impression: Bronchospasm Patient Disposition: Home, Self-Care Condition: Stable Instructions: Antibiotic Form Additional Instructions: You were seen in the ED for lung irritation. Her symptoms have since resolved. Please use caution when in enclosed areas. Return if you develop any new or worsening symptoms. Patient Language: Moldovan Prescriptions: No Action omeprazole 40 mg capsule,delayed release(DR/EC) 40 mg PO DAILY Rx Instructions: 40 mg PO daily before a meal; tamsulosin [Flomax] 0.4 mg capsule 0.4 mg PO DAILY Qty: 90 1RF simvastatin 40 mg tablet See Rx Instructions .ROUTE .COMPLEX Qty: 90 2RF Dose Instruction: TAKE 1 TABLET BY MOUTH EVERY DAY IN THE EVENING Rx Instructions: TAKE 1 TABLET BY MOUTH EVERY DAY IN THE EVENING lisinopril 20 mg tablet See Rx Instructions .ROUTE .COMPLEX Qty: 90 2RF Dose Instruction: 20 MG ORALLY DAILY Rx Instructions: 20 MG ORALLY DAILY lamotrigine 100 mg tablet See Rx Instructions .ROUTE .COMPLEX Qty: 90 2RF Dose Instruction: TAKE 1 TABLET BY MOUTH EVERY DAY Rx Instructions: TAKE 1 TABLET BY MOUTH EVERY DAY metoprolol succinate 100 mg tablet extended release 24 hr See Rx Instructions .ROUTE .COMPLEX Qty: 135 2RF Dose Instruction: 150 MG ORALLY DAILY Rx Instructions: 150 MG ORALLY DAILY tramadol 50 mg tablet 50 mg PO Q6H PRN (Reason: pain) Qty: 20 0RF cholecalciferol (vitamin D3) 50 mcg (2,000 unit) capsule See Rx Instructions .ROUTE .COMPLEX Qty: 180 2RF Dose Instruction: TAKE 2 CAPSULES BY MOUTH EVERY DAY Rx Instructions: TAKE 2 CAPSULES BY MOUTH EVERY DAY Follow-up/Referrals: Edward Mckeon MD [Primary Care Provider] -
== END 2025-01-10 17:36 | disposition home or self-care (01) ==
PROVIDERS: Emergency Provider Emergency Medicine; PCP Emergency Medicine
DX: J98.01 Acute bronchospasm (principal); I10 Essential (primary) hypertension; E78.2 Mixed hyperlipidemia; K21.9 Gastro-esophageal reflux disease without esophagitis; Z86.0100 Personal history of colon polyps, unspecified; Z79.899 Other long term (current) drug therapy
CPT/HCPCS: 71045; 99283